=== PATIENT | male | born 1980 | race Caucasian/White ===

== ENCOUNTER 2016-12-23 18:42 | Inpatient (IN) ==
--- NOTE | 2016-12-23 19:17 | PROVIDER DOCUMENTATION ---
HPI-Chest Pain - General Chief Complaint: Chest Pain Stated Complaint: CP- LT ARM PAIN WHEN WALK A LONG WAY Time Seen by Provider: 12/23/16 19:05 Source: patient Allergies/Adverse Reactions: Patient Allergies Allergy/AdvReac Type Severity Reaction Status Date / Time erythromycin base Allergy RASH Verified 12/23/16 19:37 Home Medications: Home Medication List Medication Instructions Recorded Confirmed Last Taken Type Atorvastatin Calcium 1 tab PO DAILY 12/23/16 12/23/16 12/23/16 07:00 History Metoprolol [Lopressor] 1 tab PO DAILY 12/23/16 12/23/16 12/23/16 07:00 History Oxycodone HCl/Acetaminophen 1 tab PO TID 12/23/16 12/23/16 12/23/16 09:00 History [Oxycodon-Acetaminophen 7.5-325] Pregabalin [Lyrica] 1 cap PO BID 12/23/16 12/23/16 12/23/16 07:00 History Ranitidine HCl 1 tab PO DAILY 12/23/16 12/23/16 12/23/16 History Trazodone HCl 1 tab PO QHS 12/23/16 12/23/16 12/22/16 20:00 History - History of Present Illness-CP Nature of Presenting Problem: 36 yom with chest pain that has been off and on for a year. Pain started today after some mild activity, pain has not subsided at this time. Pain radiates to left arm. Has some SOB with pain, nausea without vomiting. Location: reports: substernal Chest Pain Radiation: reports: arms, shoulders Quality of Pain: reports: pressure Severity in ED: moderate Onset/Duration: 4-6 hours ago Timing: still present Context/Activities at Onset: reports: light activity Modifying Factors: improves with: nothing Associated Symptoms: reports: nausea, shortness of breath. denies: vomiting Similar Symptoms Previously?: Yes Recently Seen Here or By Another Healthcare Provider: No Review of Systems - Adult - REVIEW OF SYSTEMS - ADULT Constitutional: reports: see HPI Eyes: reports: no symptoms reported Ears, Nose, Mouth & Throat: reports: no symptoms reported Cardiovascular: reports: see HPI, chest pain Respiratory: reports: see HPI, dyspnea on exertion, shortness of breath Gastrointestinal: reports: no symptoms reported Genitourinary: reports: no symptoms reported Musculoskeletal: reports: no symptoms reported Integumentary: reports: no symptoms reported Neurological: reports: no symptoms reported All Other Systems: Reviewed and Negative Past History - Adult - PAST MEDICAL HISTORY-ADULT Review of Records: reports: Old Records Reviewed, Nursing Assessment Review, Medications Reviewed, Social history reviewed & non-contributory. Physical Exam-General - PHYSICAL EXAM-ADULT Initial Vital Signs Reviewed: Yes - CONSTITUTIONAL General Appearance: appears well, alert, no apparent distress - EYES Eyes: PERRL/EOMI, pink conjunctivae - HEAD, EARS, NOSE, MOUTH & THROAT HENMT: normocephalic/atraumatic, moist mucous membranes, normal ENT inspection - NECK Neck: non-tender, full range of motion, supple - RESPIRATORY Respiratory: chest non-tender, lungs clear, normal breath sounds, no pleuratic chest pain, no respiratory distress, no accessory muscle use - CARDIOVASCULAR Cardiovascular: normal peripheral pulses, no edema, no gallop, no JVD, no murmur - GASTROINTESTINAL (ABDOMEN) Abdominal Exam: normal bowel sounds, non tender, soft, no organomegaly, no pulsatile mass - LYMPHATIC Lymphatic: no adenopathy - MUSCULOSKELETAL Back Exam: normal inspection, no CVA tenderness, no vertebral tenderness Extremity: normal range of motion, non-tender, normal gait, normal inspection, no pedal edema, no calf tenderness, normal capillary refill, pelvis stable - SKIN Integumentary: normal color, normal turgor, warm/dry - NEUROLOGIC Neurologic: grossly normal - PSYCHIATRIC Psych/Mental Status: oriented x 3 Progress - PLAN OF CARE/RESULTS Progress/Plan/Lab Results: Vital Signs - 8 hr 12/23/16 18:47 12/23/16 19:45 Temperature 97.4 F L Pulse Rate 96 H 82 Respiratory Rate 20 18 Blood Pressure 122/72 119/73 O2 Sat by Pulse Oximetry 95 96 Laboratory Results - last 24 hr 12/23/16 12/23/16 12/23/16 19:23 19:23 19:23 WBC 10.53 RBC 4.49 L Hgb 13.2 L Hct 39.3 L MCV 87.5 MCH 29.4 MCHC 33.6 RDW Std Deviation 12.9 Plt Count 335 MPV 9.8 Immature Gran % (Auto) 0.3 Neut % (Auto) 48.1 Lymph % (Auto) 26.8 [place] % (Auto) 8.9 Eos % (Auto) 14.7 H Baso % (Auto) 1.2 H Immature Gran # (Auto) 0.03 Neut # (Auto) 5.06 Lymph # (Auto) 2.82 [place] # (Auto) 0.94 H Eos # (Auto) 1.55 H Baso # (Auto) 0.13 PT INR PTT (Actin FS) D-Dimer 0.10 Sodium 142 Potassium 4.0 Chloride 103 Carbon Dioxide 24 L Anion Gap 15 BUN 27 H Creatinine 1.3 H Estimated GFR/1.73 m2 > 60 BUN/Creatinine Ratio 21 Glucose 103 Calculated Osmolality 288 Calcium 9.1 Magnesium 2.4 Total Bilirubin 0.28 AST 26 ALT 35 Alkaline Phosphatase 58 Creatine Kinase 104 Troponin T [id number] Pept Total Protein 7.0 Albumin 4.4 Globulin 2.6 Albumin/Globulin Ratio 1.7 12/23/16 12/23/16 12/23/16 19:23 19:23 19:23 WBC RBC Hgb Hct MCV MCH MCHC RDW Std Deviation Plt Count MPV Immature Gran % (Auto) Neut % (Auto) Lymph % (Auto) [place] % (Auto) Eos % (Auto) Baso % (Auto) Immature Gran # (Auto) Neut # (Auto) Lymph # (Auto) [place] # (Auto) Eos # (Auto) Baso # (Auto) PT 10.1 INR 0.96 PTT (Actin FS) 26.4 D-Dimer Sodium Potassium Chloride Carbon Dioxide Anion Gap BUN Creatinine Estimated GFR/1.73 m2 BUN/Creatinine Ratio Glucose Calculated Osmolality Calcium Magnesium Total Bilirubin AST ALT Alkaline Phosphatase Creatine Kinase Troponin T < 0.010 [id number] Pept 510 H Total Protein Albumin Globulin Albumin/Globulin Ratio Orders Category Date Time Status Saline Loc NOW Care 12/23/16 19:11 Active CHEST-2 VIEWS [RAD] Stat Exams 12/23/16 18:51 Draft CBC WITH ELECTRONIC DIFF [HEME] Stat Lab 12/23/16 19:23 Completed CK PROFILE [SP CHEM] Stat Lab 12/23/16 19:23 Completed COMPREHENSIVE METABOLIC PANEL [CHEM] Stat Lab 12/23/16 19:23 Completed D-DIMER [CHEM] Stat Lab 12/23/16 19:23 Completed MAGNESIUM [CHEM] Stat Lab 12/23/16 19:23 Completed PRO B-NATRIURETIC PEPTIDE Stat Lab 12/23/16 19:23 Completed PROTIME WITH INR [COAG] Lab 12/24/16 02:00 Uncollected PROTIME WITH INR [COAG] Lab 12/24/16 08:00 Uncollected PROTIME WITH INR [COAG] Lab 12/24/16 14:00 Uncollected PROTIME WITH INR [COAG] Lab 12/24/16 20:00 Uncollected PROTIME WITH INR [COAG] Lab 12/25/16 02:00 Uncollected PROTIME WITH INR [COAG] Lab 12/25/16 08:00 Uncollected PROTIME WITH INR [COAG] Stat Lab 12/23/16 19:23 Completed PTT HEPARIN PROTOCOL [COAG] Lab 12/24/16 02:00 Uncollected PTT HEPARIN PROTOCOL [COAG] Lab 12/24/16 08:00 Uncollected PTT HEPARIN PROTOCOL [COAG] Lab 12/24/16 14:00 Uncollected PTT HEPARIN PROTOCOL [COAG] Lab 12/24/16 20:00 Uncollected PTT HEPARIN PROTOCOL [COAG] Lab 12/25/16 02:00 Uncollected PTT HEPARIN PROTOCOL [COAG] Lab 12/25/16 08:00 Uncollected PTT HEPARIN PROTOCOL [COAG] Lab 12/25/16 14:00 Uncollected PTT HEPARIN PROTOCOL [COAG] Lab 12/25/16 20:00 Uncollected PTT HEPARIN PROTOCOL [COAG] Lab 12/26/16 02:00 Uncollected PTT HEPARIN PROTOCOL [COAG] Lab 12/26/16 08:00 Uncollected PTT HEPARIN PROTOCOL [COAG] Stat Lab 12/23/16 20:55 Uncollected PTT [COAG] Stat Lab 12/23/16 19:23 Completed TROPONIN T Stat Lab 12/23/16 19:23 Completed Heparin Med 12/23/16 19:36 Discontinued 5,000 unit IV NOW ONE Heparin 25,000 Units/D5w Med 12/23/16 19:45 Active 25,000 unit in 250 ml IV 14.152 mls/hr Morphine Med 12/23/16 19:51 Discontinued 4 mg IV NOW ONE Ondansetron [Zofran] Med 12/23/16 19:51 Discontinued 4 mg IV NOW ONE EKG [EKG] Stat Ther 12/23/16 18:51 Ordered Result Diagrams: 12/23/16 19:23 12/23/16 19:23 - XRAY 1 XRAY: Bilateral XRAY Study: Chest Impression: Normal (Per radiologist.) - CONSULTS/PCP/HOSPITALIST Notification #1 *Consult/PCP/Hospitalist*: [place] Time Discussed: 21:48 Consult Disposition: Will see in ED, Admit Departure - Departure Time of Disposition Decision: 21:32 DIAGNOSIS: Unstable angina Disposition: ADMITTED INPATIENT 09 Certified Medical Emergency: Emergent Condition: Stable Referrals and Follow-Ups: Todd Keys [Primary Care Provider] - Attestation - Physician/ CHAD Attestation Patient care was provided by Advanced Practice Provider:: Yes Advanced Practice Provider:: Magdiel Adhikari Advanced Practice Provider documentation review:: The Mid-level provider documentation, treatment plan and medical decision making was reviewed by the physician who agrees with all treatment and medical decision making by the MLP.
[2016-12-23] MEDS ORDERED: HEPARIN IV ONE (19:36)
[2016-12-23 19:39] LABS: MANUAL DIFF NEEDED? NO
[2016-12-23] MEDS ORDERED: HEPARIN 25,000 UNITS/D5W 25,000 UNIT/250 ML IV.SOLN IV SCH (19:45)
[2016-12-23] MEDS ORDERED: MORPHINE IV ONE (19:51)
[2016-12-23] MEDS ORDERED: ZOFRAN IV ONE (19:51)
[2016-12-23 19:55] LABS: BASO% 1.2 % (0.0-0.8); EOS# 1.55 X1000 (0.0-0.7); EOS% 14.7 % (0.0-10.0); HEMATOCRIT 39.3 % (42.0-52.0); HEMOGLOBIN 13.2 g/dL (14.0-18.0); IMM GRAN# 0.03 X1000 (0.0-0.04); IMM GRAN% 0.3 % (0.0-0.5); LYMPH# 2.82 X1000 (1.2-3.4); LYMPH% 26.8 % (20.5-51.1); MCH 29.4 PG (27-31); MCHC 33.6 g/dL (33-37); MCV 87.5 FL (81-99); MONO# 0.94 X1000 (0.11-0.59); MONO% 8.9 % (1.7-9.3); MPV 9.8 FL (7.4-10.4); NEUT% 48.1 % (42.2-75.2); PLT 335 X1000 (130-400); RBC 4.49 XMIL (4.7-6.1)
[2016-12-23 20:04] LABS: INR 0.96; PROTIME 10.1 Seconds (9.2-11.7); PTT 26.4 Seconds (22.0-36.0)
[2016-12-23 20:20] LABS: AGAP 15; ALBUMIN 4.4 g/dL (3.5-5.0); ALKALINE PHOSPHATASE 58 U/L (32-122); BUN 27 mg/dL (8-22); CALCIUM 9.1 mg/dL (8.8-10.2); CHLORIDE 103 mmol/L (98-107); CK PROFILE 104 U/L (24-204); COSMO 288; GOT 26 U/L (10-34); GPT 35 U/L (10-44); MAGNESIUM 2.4 mg/dL (1.5-2.7); SODIUM 142 mmol/L (136-145); TCO2 24 mmol/L (25-35); TOTAL BILIRUBIN 0.28 mg/dL (0.20-1.00)
--- NOTE | 2016-12-23 20:44 | Diag Imaging Result Document ---
PROCEDURE NAME: CHEST-2 VIEWS - 12/23/2016 FRONTAL AND LATERAL CHEST, 2 VIEWS: FINDINGS: No comparison films. The lungs are well expanded. The heart is not enlarged. The vessels are not distended. No pneumonia. No pleural effusions. No free air beneath the diaphragm. IMPRESSION: No acute abnormality.
--- NOTE | 2016-12-23 22:38 | ED EKG INTERP ---
This chart was entered by Tom Hawkins Scribe, acting as scribe for Joesph Mehta MD. EKG Interpretation - EKG Time of EKG reading by physician:: 18:57 EKG Read and Signed by:: Joesph Mehta EKG Interpretation (*Must complete 3 of following elements*): Abnormal (ST & Marked T wave abnormality, consider anterolateral ischemia; Prolonged QT) Rate: 90 Rhythm: NSR This chart was documented by the indicated scribe, (Tom Hawkins Scribe) and accurately reflects the services I performed and decisions made by me, Joesph Mehta MD, as attested by the provider's signature.
[2016-12-23] MEDS ORDERED: ASPIRIN PO ONE (23:41)
[2016-12-24] MEDS ORDERED: ZOFRAN IV PRN (00:41)
[2016-12-24] MEDS ORDERED: TYLENOL PO PRN (00:41)
[2016-12-24] MEDS ORDERED: NS 1,000 ML IV ONE (00:41)
[2016-12-24] MEDS ORDERED: NITROGLYCERIN SL PRN (00:41)
--- NOTE | 2016-12-24 01:19 | HISTORY AND PHYSICAL ---
PRIMARY CARE PROVIDER: Dr. Todd Keys. CHIEF COMPLAINT: Chest pain. HISTORY OF PRESENT ILLNESS: Mr. Nunez is a 36-year-old, male who presented to the ER tony[facility] with complaints of left-sided chest pain that is intermittent, burning in nature, radiating to his left arm. The patient does report associated symptoms of shortness of breath, diaphoresis, and occasional episodes of lightheadedness. The patient states that his chest pain has been ongoing for over a year, since 2014. He states that initially he went in to have a lower back surgery in 2014. They did an EKG and saw some abnormalities and sent him to Dr. Jacome for further evaluation. At that time he did undergo a myocardial perfusion scan and stress test which did not show any significant findings. He was placed on metoprolol for which he reports was secondary to some episodes of elevated heart rate. He reports that at the time that he was evaluated by Dr. Jacome he was having the same chest pain he is having now although did not report this to the adult specialist. He states that over the past year especially in the last few weeks his chest pain has been getting more frequent as well as intensity of the pain has worsened. He states that now even with the slightest of exertion that his chest pain increases ans he has to stop and actually lie down for the pain to subside. For example, he reports that even walking from the house to the car he has to stop and lay the seat back in the car and rest. He also reports that just tonight in his room in the ER that they had him get out of bed and stand on the scale to weigh him and that this caused him to have chest pain as well. He denies any pain currently at rest. He has history of hypertension and hyperlipidemia and currently takes lisinopril, metoprolol and atorvastatin. The patient was previously a heavy smoker for approximately 10 years smoking 2 packs per day though has cut this down at this time to half a pack per day. He does not report any heavy alcohol use but states that he drinks anywhere from 2-3 beers a week and denies any illicit drug use. There is a family history of heart disease though this is only on his paternal side stating that his grandfather had a history of heart disease and did have to have bypass surgery though his mother, father and brother do not have any significant heart history. Upon evaluation in the ER, the patient was found to have EKG findings of ST depression in anterior lateral leads. EKG showed a normal sinus rhythm with ST and marked T-wave abnormality, consider anterior lateral ischemia as well as a prolonged QT, is at a rate of 90 with a QTc of 479. Vital signs are stable at this time with a heart rate of 78, respirations 20, blood pressure 111/88, and oxygen saturation of 97% nasal cannula at 2 L. Initial cardiac enzymes are negative at this time with a CK of 104 and troponin less than 0.01. Dr. Toure with Cardiology was contacted by ER provider and he is aware of the patient and did want the patient placed on a heparin drip at this time. At this time we will admit the patient for further treatment and evaluation of his chest pain. REVIEW OF SYSTEMS: A 12 point review of systems was conducted with the patient and all were negative except for pertinent positive mentioned in the above HPI. He denies any headache, dizziness, abdominal pain, nausea, vomiting, diarrhea. He denies any hematochezia or melena. He denies any dysuria or urinary frequency. He denies any fever, body aches or chills and also denied any pain, numbness or tingling in extremities. He does report some low back pain though this is chronic and has been ongoing for quite some time secondary to 4 previous low back surgeries. PAST MEDICAL HISTORY: 1. Hypertension. 2. Tachycardia. 3. Hyperlipidemia. 4. Chronic low back pain. PAST SURGICAL HISTORY: 1. Tonsillectomy. 2. Right hand surgery. 3. Four lower back surgeries. SOCIAL HISTORY: Patient is disabled at this time secondary to his lower back problems. He denies any illicit drug use though does report that he previously was a heavy smoker for approximately 10 years smoking 2 packs per day though at this time has cut this back to half a pack per day. He reports drinking approximately 2-3 beers a week. FAMILY HISTORY: Positive for his grandfather on his paternal side having a history of heart disease with bypass surgery. His father has a history of low back problems. He reports that his mother is healthy. He does have a brother who had a history of diabetes as well as cystic fibrosis though has secondary to complications from his cystic fibrosis. ALLERGIES: Patient reports allergy to erythromycin. HOME MEDICATIONS: 1. Atorvastatin 40 mg p.o. daily. 2. Metoprolol 50 mg p.o. daily. 3. Percocet 7.5 mg 1 p.o. 3 times a day. 4. Lyrica 200 mg b.i.d. 5. Zantac 300 mg p.o. daily. 6. Trazodone 50 mg p.o. daily. 7. Lisinopril once daily. The patient states that he thinks this dosage is 40 mg. We are waiting for the patient's father to bring his medication bottles to confirm these dosages as well. DIAGNOSTIC DATA/LABORATORY RESULTS: White blood cell count 10.5, hemoglobin 13.2, hematocrit 39.3, platelet count 335,000. PT 10.1, INR 0.96, PTT 26.4. D-dimer 0.10. Sodium 142, potassium 4.0, chloride 103, bicarb 24, BUN 27, creatinine 1.3 with a GFR greater than 60 , glucose 103, calcium 9.1, magnesium 2.4. Liver function tests are within normal limits. CK 104. Troponin less than 0.01. ProBNP was 510. Chest x-ray showed no acute abnormality per the radiologist. The EKG shows ST depression in anterior lateral leads. It showed a normal sinus rhythm with an ST and marked T-wave abnormality, consider anterior lateral ischemia and a prolonged QT at a rate of 90 with a QTc of 479. PHYSICAL EXAMINATION: VITAL SIGNS: Temperature 97.4 degrees, heart rate 78, respirations 20, blood pressure 111/88, oxygen saturation is 97%. GENERAL: Mr. Nunez is a pleasant 36-year-old male who is resting in the ER stretcher. He was in no acute distress. He was awake, alert and able to answer all questions appropriately. HEENT: Head is atraumatic, normocephalic. Pupils were equal, round, reactive to light at 3 mm bilaterally and brisk. Subconjunctivae were pink. Oral mucosa is moist. Oropharynx is clear. NECK: Supple. Trachea midline. No JVD noted. No carotid bruits noted upon auscultation bilaterally. CARDIOVASCULAR: Patient has normal S1, S2. No murmurs, gallops, or rubs appreciated with a regular rate and rhythm. PULMONARY: Patient has symmetrical chest expansion bilaterally. Lung sounds were clear to auscultation in bilateral full lopez. ABDOMEN: Soft. Does appear to be somewhat distended though the patient does have a protuberant abdomen noted. His abdomen was nontender upon palpation. Bowel sounds were present all 4 quadrants, were normoactive. EXTREMITIES: No cyanosis, clubbing, or edema noted. Pulse, motor and sensory were intact in all extremities as well. Pedal pulses as well as radial pulses were 3+ bilaterally. Capillary refill is less than 3. INTEGUMENTARY: The patient's skin is pink, warm, dry, and intact. No lesions or sores noted. NEUROLOGIC: Patient is alert and oriented to person, place, time, and situation. Cranial nerves 2-12 are grossly intact. ASSESSMENT AND PLAN: 1. Chest pain. For this, it does appear the patient is experiencing some unstable angina. We will place him on CIC for close cardiac monitoring. He has been given a 325 mg aspirin. We will continue this daily as well. We have increased his atorvastatin from 40 mg to 80 mg daily. He is currently on a heparin drip at this time per weight- based protocol. We will monitor his PTT and for any signs of bleeding as well. We will continue his metoprolol and lisinopril. We will continue with a series of cardiac enzymes with q.8 hour troponin and CK profile as well as a repeat EKG in the morning. We will give nitroglycerin sublingual for chest pain as well as morphine p.r.n. as needed. We have also placed orders for a lipid profile to be drawn in the morning and the patient will be placed NPO after midnight for this as well as for his cardiology consult. We have placed a consult with cardiology for Dr. Toure and we will await their evaluation and further recommendations and continue to follow his condition closely. 2. Hypertension. We will continue his blood pressure medications for this as mentioned above in #1 and continue to follow. 3. Hyperlipidemia. We will continue his atorvastatin but as previously mentioned we have increased the dose to 80 mg p.o. daily. 4. Chronic low back pain. We will continue the patient's Lyrica and he will receive morphine for pain as needed. 5. Tobacco abuse/dependency. We have discussed smoking cessation with the patient and we will continue to discuss this with him throughout his admission. The patient will be placed on CIC with telemetry. He will have vital signs q.4 hours. DVT prophylax this time is currently met given that the patient is on a heparin drip. GI prophylaxis will be provided with Protonix 40 mg IV q.24 hours. The patient did have an elevated creatinine though we do not have any recent labs to compare this to. His creatinine was 1.3 today and the most recent creatinine we have was in October of 2009 for which it was 1.0. We will give the patient normal saline at 100 mL/h x1 bag and we will repeat a chemistry in the morning and continue to follow this. We have also placed a order for a urinalysis as well as a urine drug screen and are awaiting those results. Further orders and recommendations pending hospital course, diagnostic studies, and physician evaluation. Dictated by EDGAR Gerard for Socrates Ayala MD I personally examined patient and discussed case with [employer]AME [employer]ER. cc: Socrates Ayala MD MTDD
[2016-12-24] MEDS: PROTONIX IV SCH ×2 (01:33→23:41)
[2016-12-24] MEDS: SODIUM CHLORIDE 0.9% INJ SCH (01:33)
[2016-12-24] MEDS: MORPHINE IV PRN ×3 (01:33→23:41)
[2016-12-24] MEDS ORDERED: PNEUMOVAX 23 IM ONE (02:21)
[2016-12-24] MEDS: NICODERM PATCH TD SCH ×2 (02:45→08:46)
[2016-12-24 02:56] LABS: PROTIME 10.5 Seconds (9.2-11.7)
[2016-12-24 02:59] LABS: PTT HEPARIN PROTOCOL 51.9 Seconds
[2016-12-24] MEDS ORDERED: HEPARIN 25,000 UNITS/D5W 25,000 UNIT/250 ML IV.SOLN IV SCH (03:55)
[2016-12-24] MEDS ORDERED: HEPARIN IV ONE (03:57)
[2016-12-24] MEDS ORDERED: HEPARIN ONE (04:00)
[2016-12-24 05:02] LABS: AGAP 14; BUN 26 mg/dL (8-22); CALCIUM 8.9 mg/dL (8.8-10.2); CHLORIDE 105 mmol/L (98-107); COSMO 287; MAGNESIUM 2.3 mg/dL (1.5-2.7); SODIUM 141 mmol/L (136-145); TCO2 22 mmol/L (25-35)
[2016-12-24 05:44] LABS: URINE CULTURE NEEDED? NO; URINE MICRO REVIEW NEEDED? NO; URINE SOURCE CLEAN CATCH
[2016-12-24 05:48] LABS: BILIRUBIN URINE NEGATIVE (NEGATIVE); BLOOD URINE NEGATIVE (NEGATIVE); COLOR YELLOW; GLUCOSE URINE NEGATIVE (NEGATIVE); LEUKOCYTES URINE NEGATIVE (NEGATIVE); NITRITE URINE NEGATIVE (NEGATIVE); PROTEIN URINE NEGATIVE (NEGATIVE); SP GRAVITY URINE 1.021; TURBIDITY URINE CLEAR (CLEAR); UROBILINOGEN URINE NORMAL (NORMAL)
[2016-12-24 05:49] LABS: UR EPITHELIAL CELLS <10 /HPF (<10); URINE BACTERIA NEGATIVE /HPF; URINE RBC <10 /HPF (<10); URINE WBC <10 /HPF (<10)
[2016-12-24 06:10] LABS: UR AMPHETAMINES QUAL NONE DETECTED (NONE DETECT); UR BARBITUATES QUAL NONE DETECTED (NONE DETECT); UR BENZODIAZEPIN QUAL NONE DETECTED (NONE DETECT); UR CANNABINOIDS QUAL NONE DETECTED (NONE DETECT); UR COCAINE QUAL NONE DETECTED (NONE DETECT); UR METHADONE QUAL NONE DETECTED (NONE DETECT); UR OPIATES QUAL PRESUMPTIVE POSITIVE (NONE DETECT); UR OXYCODONE QUAL NONE DETECTED (NONE DETECT); UR PCP QUAL NONE DETECTED (NONE DETECT)
--- NOTE | 2016-12-24 08:43 | PROGRESS NOTE ---
DATE: 12/24/2016 SUBJECTIVE DATA: Mr. Nunez is a 36-year-old, male with a history of chronic back pain, apparent apical hypertrophic cardiomyopathy, obesity, hypertension, and hyperlipidemia who was admitted last night with chest pain concerning for acute coronary syndrome. He reports severe chest burning in the left upper chest, radiating to the left arm whenever he does any type of exertion. Last night, he did not have any real acute complaints. This morning , he had some mild nausea but no overt chest pain at rest and no shortness of breath. His vitals were stable. He is currently resting in bed comfortably without distress noted. OBJECTIVE DATA: Vital Signs: Blood pressure is 126/67, heart rate is 81, respiratory rate is 18, O2 saturation is 98% on 2 L nasal cannula. Temperature is 97.7 degrees. Physical Examination: General: This is an obese, male, lying in the hospital bed in no acute distress. Neurologic: He is awake, alert, and oriented. He follows commands without focal deficits. HEENT: Head is atraumatic and normocephalic. Pupils are equal, round, and reactive to light. His oral mucosa is moist. Trachea is midline. Chest: Clear to auscultation. Diminished at the bases. CV: Regular rate and rhythm. S1-S2 is noted. There is a 1-2/6 systolic ejection murmur noted. GI: Soft, nondistended. Bowel sounds are positive. Extremities : Without edema, clubbing, or cyanosis. Pulses are palpable bilaterally. Diagnostic Data: INR is 1, PT 10.5, PTT is 51.9. Sodium 141, potassium 4, chloride 105, CO2 22, anion gap 14, BUN 26, creatinine 1.2, glucose is 124. Troponin is negative. UA is negative. Toxicology is positive for opiates. EKG continues to show normal sinus rhythm with diffuse ST and T abnormalities in the anterolateral leads. Intake and output show positive 135. ASSESSMENT AND PLAN: 1. Chest pain: Symptoms are concerning for acute coronary syndrome. Patient is on heparin protocol. He is on aspirin, high-dose statin, and nitrates. His enzymes thus far are negative. Cardiology has been consulted. In light of his history of apical hypertrophic cardiomyopathy, an echocardiogram has been ordered. We will continue to monitor telemetry and await recommendations from cardiology. 2. Acute kidney injury: Improved with intravenous hydration. We will continue to monitor. 3. Chronic pain: We will continue his Percocet with morphine for breakthrough pain. 4. Hypertension and hyperlipidemia: Currently controlled with medications. A lipid panel has been ordered for the morning. 5. Nicotine dependence: Patient has been highly advised to quit smoking. Nicotine patch has been prescribed to him. We will continue cessation education. 6. Of note, the patient reports that his grandfather was 1 of 9 children and all 9 apparently from heart disease. Earliest ages were in the 30s to 40s. There is a significant cardiac history on both sides of his family. 7. Deep venous thrombosis prophylaxis provided with heparin drip. Further recommendations to follow. Dictated by EDGAR Fairbanks for Moody Carvalho MD cc: EDGAR Fairbanks Addendum: I personally evaluated and examined the patient in conjunction to the [employer] and agreed with his assessment and disposition. No recurrent pain. Echo is consistent with cardiomyopathy. Discussed with Dr. Matute who plans to stress him. UMA
[2016-12-24] MEDS: PERCOCET-5 PO SCH ×3 (08:45→20:47)
[2016-12-24] MEDS: LOPRESSOR PO SCH (08:46)
[2016-12-24] MEDS: PRINIVIL PO SCH (08:46)
[2016-12-24] MEDS ORDERED: PREGABALIN PO SCH (09:00)
[2016-12-24] MEDS ORDERED: LYRICA PO SCH (09:00)
[2016-12-24] MEDS: LYRICA PO SCH ×2 (09:01→20:47)
[2016-12-24 10:34] LABS: MANUAL DIFF NEEDED? NO
[2016-12-24 10:37] LABS: BASO% 0.6 % (0.0-0.8); EOS# 1.57 X1000 (0.0-0.7); EOS% 13.7 % (0.0-10.0); HEMATOCRIT 39.4 % (42.0-52.0); HEMOGLOBIN 13.4 g/dL (14.0-18.0); IMM GRAN# 0.03 X1000 (0.0-0.04); IMM GRAN% 0.3 % (0.0-0.5); LYMPH# 3.23 X1000 (1.2-3.4); LYMPH% 28.3 % (20.5-51.1); MCH 30.2 PG (27-31); MCV 88.7 FL (81-99); MONO# 0.89 X1000 (0.11-0.59); MONO% 7.8 % (1.7-9.3); MPV 9.8 FL (7.4-10.4); NEUT% 49.3 % (42.2-75.2); PLT 307 X1000 (130-400); RBC 4.44 XMIL (4.7-6.1)
--- NOTE | 2016-12-24 20:22 | CONSULTATION ---
DATE OF CONSULTATION: 12/24/2106 IMPRESSIONS: 1. Episodic chest discomfort with mixed features but predominantly atypical for myocardial ischemia. Serial troponins normal. 2. Hypertrophic cardiomyopathy without obstruction. 3. Hypertension. 4. Chronic cigarette use. 5. Hypercholesterolemia. 6. Chronic back disorder. 7. Obesity. 8. Very likely obstructive sleep apnea. RECOMMENDATIONS: Further evaluation strategies discussed with patient including possible pharmacologic myocardial perfusion study versus coronary angiography. He prefers to pursue noninvasive evaluation with pharmacologic myocardial perfusion study and Lexiscan sestamibi study will be arranged. HISTORY: This 36-year-old white male with a past history of hypertrophic cardiomyopathy, hypertension, hypercholesterolemia, and smoking was admitted to the emergency room last night for evaluation of chest pain and abnormal EKG. He had an evaluation year and a half ago for abnormal preoperative ECG which demonstrated diffuse T-wave inversions. He was found to have hypertrophic cardiomyopathy. Noninvasive screen for coronary artery disease was negative. He relates recent difficulty with episode of burning left upper lateral chest discomfort which extends to the left shoulder and left upper extremity. Discomfort seems to be aggravated mostly by movement but can also occur when he walks longer distances or walks uphill. He has noted some tendency for discomfort to seem better after takes his metoprolol. He does have a history of snoring and he has an uncle who is a physician who observed him sleep and suspected obstructive sleep apnea. PAST MEDICAL HISTORY: 1. Hypertrophic cardiomyopathy. 2. Obesity. 3. Hypertension. 4. Hypercholesterolemia. 5. Chronic back disorder with 4 previous back surgeries. MEDICATIONS: Prior to admission as listed. SOCIAL HISTORY: He is disabled due to his back disorder. He smokes half-pack of cigarettes per day. He does not use alcohol. FAMILY HISTORY: Negative for premature coronary artery disease. He has had several uncles who early in life but details are not available. REVIEW OF SYSTEMS: Pulmonary: Negative. Gastrointestinal: Negative. Constitutional: Negative. Remainder of review of systems is negative with 14 total systems reviewed. PHYSICAL EXAMINATION: General: This is an obese, adult male, in no distress. Vital Signs: As recorded are stable. HEENT: Extraocular movements appear intact. Mucous membranes are moist. Neck: Supple. No jugular venous distention. There are no carotid bruits. Chest: Clear to auscultation. Cardiac Exam: Regular rate and rhythm without appreciable murmur or gallop. Abdomen: Soft, nontender. Bowel sounds are normal. Extremities: Without edema. Neurologic Exam: Reveals him to be alert and fully oriented. Speech is fluent. Moves all 4 extremities equally well. DIAGNOSTIC STUDIES: ECG demonstrates sinus rhythm and diffuse marked T-wave inversions. Serial troponins are normal. cc: Oscar Toure MD
[2016-12-24] MEDS: DESYREL PO SCH (20:47)
[2016-12-24] MEDS: LIPITOR PO SCH (20:47)
[2016-12-24] MEDS: ASPIRIN PO SCH (20:47)
--- NOTE | 2016-12-25 02:14 | ECHO REPORT ---
ORDER DATE: 12/24/2016 MEASUREMENTS: Left ventricular end-diastolic diameter 4.3 and systolic diameter 2.7. Septal thickness 1.3, posterior wall thickness 1.3, left atrium 5.9, aortic root 3.2 SUMMARY: 1. Fair quality study. The apical window is somewhat limited. 2. Aortic, mitral, tricuspid, and pulmonic valves are without obstruction abnormality, with mild- to-moderate mitral regurgitation, mild tricuspid regurgitation, and trace pulmonic regurgitation. The aortic valve is trileaflet and opens normally, with peak gradient less than 10 mmHg. The aortic root is normal in size. The estimated systolic PA pressure by Doppler is approximately 30-35 mmHg. Aortic root is normal in size. 3. Normal left ventricular chamber size, with mild left hypertrophy demonstrated. The more apical portion of the left ventricle is not as well defined, but appears to be possibly more hypertrophied. Estimated left ventricular ejection fraction is 70%. No regional wall motion abnormalities are evident. Left atrium is moderately enlarged. Right atrium and right ventricle are normal in size, with preserved right ventricular systolic function. 4. No pericardial effusion. 5. Appearance of inferior vena cava suggests normal central venous pressure. CONCLUSIONS: 1. [id number] mitral regurgitation. 2. Mild tricuspid regurgitation, with an estimated systolic PA pressure of 30-35 mmHg. 3. Mild concentric left hypertrophy, with perhaps more degree of hypertrophy involving the apical portion of the left ventricle. 4. Estimated left ventricular ejection fraction 70%. 5. Moderate left atrial enlargement. cc: MD Len Albrecht CRNP
[2016-12-25] MEDS: MORPHINE IV PRN ×4 (03:42→23:50)
--- NOTE | 2016-12-25 05:28 | EKG Report ---
Test Performed on : 12/24/2016 02:21:30 AM Test Reason : Chest Pain Blood Pressure : / mmHG Vent. Rate : 073 BPM Atrial Rate : 073 BPM P-R Int : 144 ms QRS Dur : 094 ms QT Int : 420 ms P-R-T Axes : 048 028 215 degrees QTc Int : 462 ms Normal sinus rhythm. ST \T\ Marked T wave abnormality, consider inferior ischemia ST \T\ Marked T wave abnormality, consider anterolateral ischemia Prolonged QT Abnormal ECG When compared with ECG of 23-DEC-2016 18:57, (Unconfirmed) T wave inversion more evident in Inferior leads Consider recent inferior-lateral non-IVON PR Confirmed by Velvet MYERS, Luis Conde ([id number]) on 12/25/2016 6:42:58 PM
--- NOTE | 2016-12-25 05:49 | EKG Report ---
Test Performed on : 12/24/2016 12:10:54 PM Test Reason : Chest Pain Blood Pressure : / mmHG Vent. Rate : 068 BPM Atrial Rate : 068 BPM P-R Int : 152 ms QRS Dur : 092 ms QT Int : 432 ms P-R-T Axes : 047 023 213 degrees QTc Int : 459 ms Normal sinus rhythm. ST \T\ Marked T wave abnormality, consider inferior ischemia ST \T\ Marked T wave abnormality, consider anterolateral ischemia Abnormal ECG When compared with ECG of 24-DEC-2016 02:21, (Unconfirmed) No significant change was found Confirmed by Velvet MYERS, Luis Conde ([id number]) on 12/25/2016 6:47:53 PM
--- NOTE | 2016-12-25 06:21 | EKG Report ---
Test Performed on : 12/23/2016 6:57:22 PM Test Reason : Chest Pain Blood Pressure : / mmHG Vent. Rate : 090 BPM Atrial Rate : 090 BPM P-R Int : 152 ms QRS Dur : 084 ms QT Int : 392 ms P-R-T Axes : 061 031 175 degrees QTc Int : 479 ms Normal sinus rhythm. ST \T\ Marked T wave abnormality, consider anterolateral ischemia Prolonged QT Abnormal ECG No previous ECGs available Unconfirmed Result
[2016-12-25 08:00] LABS: AGAP 14; BUN 20 mg/dL (8-22); CALCIUM 8.5 mg/dL (8.8-10.2); CHLORIDE 99 mmol/L (98-107); COSMO 277; POTASSIUM 4.2 mmol/L (3.5-5.1); SODIUM 137 mmol/L (136-145); TCO2 24 mmol/L (25-35)
[2016-12-25 08:21] LABS: HEMATOCRIT 37.9 % (42.0-52.0); HEMOGLOBIN 12.7 g/dL (14.0-18.0); MCH 29.9 PG (27-31); MCHC 33.5 g/dL (33-37); MCV 89.2 FL (81-99); MPV 9.8 FL (7.4-10.4); RBC 4.25 XMIL (4.7-6.1)
[2016-12-25] MEDS: PERCOCET-5 PO SCH ×3 (08:22→20:30)
[2016-12-25] MEDS: LOVENOX SUBQ SCH (08:23)
[2016-12-25] MEDS: PRINIVIL PO SCH (08:23)
[2016-12-25] MEDS: LIPITOR PO SCH (08:23)
[2016-12-25] MEDS: LYRICA PO SCH ×2 (08:23→20:31)
[2016-12-25] MEDS: LOPRESSOR PO SCH (08:23)
[2016-12-25] MEDS: NICODERM PATCH TD SCH (08:24)
--- NOTE | 2016-12-25 14:22 | PROGRESS NOTE ---
DATE: 12/25/2016 SUBJECTIVE: This patient states that he is feeling much better, he was able to walk and he did not feel any kind of chest discomfort/pain, just some burning sensation. He is not complaining of shortness of breath. No nausea, no vomiting, no diarrhea, no constipation. OBJECTIVE: Vital Signs: Temperature 98.8 degrees, pulse 12.7. LABORATORY: WBC 9.8, hemoglobin 12.7, hematocrit 37.9, platelets 271,000. Sodium 137, potassium 4.2, chloride 99, bicarbonate 24, BUN 20, creatinine 1, glucose 111, calcium 8.5. ASSESSMENT AND PLAN: 1. Chest pain. Cardiology department evaluated this patient. They discussed the possibility of left heart catheterization versus nuclear medicine stress test, they will ask for an stress test for this patient. We will follow their recommendations. This patient is not having chest pain at this moment. 2. Acute kidney injury. Resolved. 3. Chronic pain. This patient is at home on Percocet and we have been using morphine for breakthrough pain. 4. Hypertension controlled. Continue with the same management. 5. Nicotine dependence. This patient has been highly advised to quit smoking. Continue with nicotine patch and daily cessation education. 6. Deep vein thrombosis prophylaxis. Continue with Lovenox. cc: Silver Block MD
[2016-12-25] MEDS: DESYREL PO SCH (20:31)
[2016-12-25] MEDS: ASPIRIN PO SCH (20:32)
[2016-12-25] MEDS: SODIUM CHLORIDE 0.9% INJ SCH (23:50)
[2016-12-25] MEDS: PROTONIX IV SCH (23:50)
--- NOTE | 2016-12-26 04:14 | PROGRESS NOTE ---
DATE: 12/25/2016 SUBJECTIVE: The patient continues without chest discomfort or dyspnea. Resting sestamibi was performed today. OBJECTIVE: Vital Signs: Blood pressure 127/62, heart rate 97 and regular. Neck: There is no significant jugular venous distention. Chest: Clear to auscultation. Cardiac Examination: A regular rate and rhythm without appreciable murmur or gallop. There is no evidence of peripheral edema. LABORATORY DATA: Includes initial troponin less than 0.01. Followup troponin less than 0.01. Echocardiography demonstrates mild to moderate mitral regurgitation, mild tricuspid regurgitation, mild concentric left hypertrophy with the apical portion of the left ventricle appearing more hypertrophied and left ventricular ejection fraction of 70%. IMPRESSION: 1. Recent chest pain with mixed features predominantly typical for myocardial ischemia. Serial troponin's normal. 2. Hypertrophic cardiomyopathy without obstruction. 3. Hypertension. 4. Chronic cigarette use. 5. Hypercholesterolemia. 6. Mild to moderate mitral regurgitation. 7. Very likely obstructive sleep apnea. RECOMMENDATIONS: [facility] sestamibi study scheduled for a.m. cc: Oscar Toure MD
[2016-12-26 07:54] LABS: HEMATOCRIT 39.1 % (42.0-52.0); HEMOGLOBIN 13.3 g/dL (14.0-18.0); MCH 29.8 PG (27-31); MCV 87.5 FL (81-99); MPV 9.7 FL (7.4-10.4); RBC 4.47 XMIL (4.7-6.1)
[2016-12-26] MEDS ORDERED: LEXISCAN ONE (08:01)
[2016-12-26 08:11] LABS: AGAP 15; BUN 19 mg/dL (8-22); CALCIUM 8.9 mg/dL (8.8-10.2); CHLORIDE 101 mmol/L (98-107); COSMO 279; POTASSIUM 4.3 mmol/L (3.5-5.1); SODIUM 139 mmol/L (136-145); TCO2 23 mmol/L (25-35)
[2016-12-26] MEDS: LIPITOR PO SCH (09:39)
[2016-12-26] MEDS: LYRICA PO SCH ×2 (09:40→21:03)
[2016-12-26] MEDS: NICODERM PATCH TD SCH (09:40)
[2016-12-26] MEDS: LOVENOX SUBQ SCH (09:40)
[2016-12-26] MEDS: LOPRESSOR PO SCH (09:40)
[2016-12-26] MEDS: PRINIVIL PO SCH (09:40)
[2016-12-26] MEDS: PERCOCET-5 PO SCH ×3 (09:40→21:03)
[2016-12-26] MEDS: MORPHINE IV PRN ×3 (10:19→22:00)
--- NOTE | 2016-12-26 15:58 | PROGRESS NOTE ---
DATE: 12/26/2016 SUBJECTIVE: This patient had a stress test done today. This patient is feeling much better. He is not complaining of chest pain/discomfort. He denies nausea, vomiting, diarrhea, constipation. Family members at the bedside. OBJECTIVE: Vital Signs: Temperature 98.4 degrees, pulse 100, respiratory rate 21, blood pressure 146/75, oxygen saturation 95% on room air. HEENT: Head normocephalic. No trauma. PERRLA. Neck: Supple. No JVD. No masses. Central trachea. Cardiovascular: RRR. No murmur. Abdomen: Soft, nontender, nondistended. No hepatosplenomegaly. Chest: Clear to auscultation. No wheezing. No rales. Extremities: No edema. No clubbing. No cyanosis. Neurological: The patient is alert and oriented x3. No focal neurological deficits. LABORATORY: WBC 10.1, hemoglobin 13.3, hematocrit 39.1, platelets 273,000. Sodium 139, potassium 4.3, chloride 101, bicarbonate 23, BUN 19, creatinine 1.0, glucose 88, calcium 8.9. ASSESSMENT AND PLAN: 1. Chest pain. Cardiology department is following this patient. He had a stress test done today, pending results. We will follow the recommendations of cardiology department. Patient is not having chest pain at this moment. 2. Acute kidney injury, resolved. 3. Chronic pain. Continue with the same management. 4. Hypertension, controlled. Continue with the same management. 5. Nicotine dependence. This patient has been highly advised to quit smoking. Continue with nicotine patch daily and cessation education. 6. Deep vein thrombosis prophylaxis. Continue with Lovenox. cc: Silver Block MD
--- NOTE | 2016-12-26 16:36 | PROGRESS NOTE ---
DATE: 12/26/2016 SUBJECTIVE: Patient denies any chest discomfort or dyspnea. OBJECTIVE: Blood pressure 146/75 with heart rate 110. There is no significant JV distention.Chest: Clear to auscultation. Cardiac Exam: Was a regular rate and rhythm without appreciable murmur or gallop. There is no evidence of peripheral edema. Lexiscan sestamibi study demonstrates reversible defect in the apex, left ventricle and normal left ejection fraction. Inducible myocardial ischemia suggested. IMPRESSION: 1. Recurrent chest discomfort (burning) with mixed features. 2. Abnormal ECG probably related to hypertrophic cardiomyopathy. 3. Abnormal stress myocardial perfusion study showing evidence of inducible ischemia in the apex. 4. Hypertrophic cardiomyopathy. RECOMMENDATIONS: Favor pursuit of left heart catheterization with selective coronary angiography. The rationale for this approach was discussed with the patient along with potential hazards. He wished to proceed. cc: Oscar Toure MD
--- NOTE | 2016-12-26 17:35 | Diag Imaging Result Document ---
PROCEDURE NAME: MYOCARDIAL PERF SCAN, STR/REST - 12/26/2016 LEXISCAN SESTAMIBI INTERPRETATION: DATE OF STUDY: 12/25/2016 and 12/26/2016. SUMMARY: The patient underwent resting sestamibi study on 12/25/2016, was administered 41.5 millicuries of technetium-99m level sestamibi after which resting cardiac images were obtained. The patient underwent Lexiscan sestamibi study on 12/26/2016. Following the administration of Lexiscan, the heart rate increased from 83 beats per minute to 115 beats per minute while the blood pressure went from 118/78 to 128/84. With Lexiscan, the patient denied chest discomfort. Following the administration of Lexiscan, the patient was administered 41.8 millicuries of technetium-99m sestamibi after which gated stress cardiac images were obtained. Baseline ECG demonstrated sinus rhythm and diffuse prominent T-wave inversion. Following the administration of Lexiscan, the baseline ST-T abnormality did not change significantly. SPECT images were reconstructed in the short, horizontal, and vertical long axis. Review of these images demonstrated a medium size defect in the apex left ventricle on stress images which improves on resting images. Gated images demonstrate a calculated left ejection fraction 69% with symmetrical wall motion/thickening. CONCLUSIONS: 1. Adequate response to Lexiscan. 2. Clinically negative for chest pain. 3. Electrocardiographically baseline ST and T-wave abnormality did not change significantly with Lexiscan. 4. Lexiscan sestamibi images demonstrate reversible apical defect as described suggesting inducible myocardial ischemia in apex left ventricle. Normal left ventricular systolic function demonstrated. cc: MD Silver Albrecht MD
[2016-12-26] MEDS: DESYREL PO SCH (21:03)
[2016-12-26] MEDS: ASPIRIN PO SCH (21:03)
[2016-12-27] MEDS: PROTONIX IV SCH (00:48)
[2016-12-27] MEDS: SODIUM CHLORIDE 0.9% INJ SCH (00:48)
[2016-12-27] MEDS: MORPHINE IV PRN (05:42)
[2016-12-27 06:43] LABS: HEMATOCRIT 39.1 % (42.0-52.0); HEMOGLOBIN 13.1 g/dL (14.0-18.0); MCH 29.7 PG (27-31); MCHC 33.5 g/dL (33-37); MCV 88.7 FL (81-99); MPV 9.5 FL (7.4-10.4); RBC 4.41 XMIL (4.7-6.1)
[2016-12-27 07:03] LABS: AGAP 15; BUN 21 mg/dL (8-22); CALCIUM 9.1 mg/dL (8.8-10.2); CHLORIDE 100 mmol/L (98-107); COSMO 282; POTASSIUM 4.1 mmol/L (3.5-5.1); SODIUM 140 mmol/L (136-145); TCO2 25 mmol/L (25-35)
--- NOTE | 2016-12-27 07:32 | EKG Report ---
Test Performed on : 12/27/2016 06:43:21 AM Test Reason : prior to heart cath Blood Pressure : / mmHG Vent. Rate : 082 BPM Atrial Rate : 082 BPM P-R Int : 148 ms QRS Dur : 090 ms QT Int : 388 ms P-R-T Axes : 068 033 194 degrees QTc Int : 453 ms Normal sinus rhythm. ST \T\ Marked T wave abnormality, consider anterolateral ischemia Abnormal ECG When compared with ECG of 24-DEC-2016 12:10, No significant change was found Confirmed by Velvet MYERS, Luis Conde ([id number]) on 12/27/2016 6:38:44 PM
[2016-12-27 07:49] LABS: PROTIME 10.5 Seconds (9.2-11.7); PTT 27.5 Seconds (22.0-36.0)
[2016-12-27] MEDS: LOPRESSOR PO SCH (08:08)
[2016-12-27] MEDS: LYRICA PO SCH (08:08)
[2016-12-27] MEDS: PERCOCET-5 PO SCH ×2 (08:09→14:08)
[2016-12-27] MEDS: NICODERM PATCH TD SCH (08:09)
[2016-12-27] MEDS: PRINIVIL PO SCH (08:09)
[2016-12-27] MEDS: LIPITOR PO SCH (08:10)
[2016-12-27] MEDS: LOVENOX SUBQ SCH (08:11)
[2016-12-27] MEDS ORDERED: HEPARIN 1000 UNITS/NS 2,000 UNIT/1,000 ML IV.SOLN ONE (09:11)
[2016-12-27] MEDS ORDERED: VERSED ONE (10:56)
[2016-12-27] MEDS ORDERED: CLAVE PUMP SET NO FILTER 12260 ONE (10:57)
[2016-12-27] MEDS ORDERED: DILAUDID ONE (10:57)
[2016-12-27] MEDS ORDERED: CLAVE TWINSITE 32 IN 11959 ONE (10:57)
[2016-12-27] MEDS ORDERED: NS 1,000 ML ONE (10:57)
--- NOTE | 2016-12-27 11:50 | PROGRESS NOTE ---
DATE: 12/27/2016 SUBJECTIVE: This patient states that he is feeling better. He is not complaining of chest pain today. He is going to get a left heart catheterization today because his stress test showed a reversible apical defect suggesting inducible myocardial ischemia in the apex of the left ventricle. OBJECTIVE: Vital Signs: Temperature 97.9 degrees, pulse 81, respiratory rate 21, blood pressure 134/71, oxygen saturation 95% on room air. HEENT: Head normocephalic. No trauma. PERRLA. Neck: Supple. No JVD. No masses. Central trachea. Chest: Clear to auscultation. No wheezing. No rales. Cardiovascular: RRR. No murmurs. Abdomen: Soft, nontender, nondistended. No hepatosplenomegaly. Obese. Extremities: No edema. No clubbing. No cyanosis. Neurological: The patient is alert and oriented x3. No focal neurological deficits. LABORATORY: WBC 10.4, hemoglobin 13.1, hematocrit 39.1, platelets 283,000. Sodium 140, potassium 4.1, chloride 100, bicarbonate 25, BUN 21, creatinine 1, glucose 98, calcium 9.1, magnesium 2.2. ASSESSMENT AND PLAN: 1. Chest pain. This patient had a stress test done that showed some abnormalities. He will have a left heart catheterization today. We will continue following the recommendations of the cardiology department. 2. Acute kidney injury, resolved. 3. Chronic pain. Continue with the same management. 4. Hypertension, controlled. Continue with the same treatment. 5. Nicotine dependence. This patient has been highly advised to quit smoking. Continue with nicotine patch daily and cessation education. 6. Possible sleep apnea. I recommended to do a sleep study as an outpatient. Once this patient is discharged we will give him a referral for this. 7. Deep vein thrombosis prophylaxis. Continue with Lovenox. cc: Silver Block MD
--- NOTE | 2016-12-27 12:08 | CARDIAC CATH REPORT ---
PROCEDURE NAME: - INDICATIONS FOR THE PROCEDURE: Chest pain. History of hypertrophic cardiomyopathy. PROCEDURES PERFORMED: 1. Left heart catheterization. 2. Selective coronary angiography. 3. Left ventriculogram. PROCEDURE IN DETAIL: Mr. Nunez was brought to the catheterization laboratory in fasting state. Informed consent was obtained. Prepped in usual fashion. He was anesthetized over the right radial artery. A 5-Bhutanese sheath was placed via true Seldinger technique. Radial cocktail was administered. Catheters were introduced. Hemodynamic measurements made in the ascending thoracic aorta. Coronary angiography was performed in multiple views using JL 3.5 and JR 4 diagnostic catheters. A left heart catheterization and left ventriculogram were performed using the JR 4. At the conclusion of the procedure, all sheaths and catheters were removed. TR band was left inflated at 80 mL of air, 80 mL of IV contrast. No apparent complications. Good capillary refill. Good hemostasis. FINDINGS: 1. Left main appears relatively normal. 2. Left anterior descending and left circumflex vessels originate from the left main. There are minimal luminal irregularities noted scattered throughout these vessels. 3. Right coronary originates from the right coronary cusp. It is large dominant vessel with mild diffuse luminal irregularities. 4. Aortic blood pressure is 92/62 with a mean of 72. Left ventricle pressure is 93/21 with an LVEDP of 28. 5. Left ventriculogram was a difficult study with poor opacification of the ventricle overall. The ejection fraction appeared to be normal, but unfortunately segmental wall motion abnormalities were not able to be assessed with this study. ASSESSMENT: Mr. Nunez is a 36-year-old male with a history of hypertrophic cardiomyopathy presenting with chest pain. PLAN: He has no flow-limiting coronary lesions. He appears to have a normal ejection fraction. His EDP does appear to be significantly elevated, which could be the source of some of his symptomatology. I will defer further management of this patient to Dr. Toure, who is his primary consumer analyst in the hospital. cc: Jarred Chauhan MD
[2016-12-27 16:09] VITALS: BP 108/67
--- NOTE | 2016-12-27 18:16 | PROGRESS NOTE ---
DATE: 12/27/2016 SUBJECTIVE: Patient continues without chest discomfort or dyspnea. OBJECTIVE: Vital signs: Blood pressure 108/67, heart rate 76 and regular. Chest: Clear to auscultation. Cardiac: Reveals a regular rate and rhythm without appreciable murmur or gallop. There is no evidence of peripheral edema. Right radial artery access site for cardiac catheterization appears to be stable with no evidence of bleeding or hematoma. Cardiac catheterization study reports no significant coronary obstructive lesions and normal left ventricular ejection fraction. IMPRESSION: 1. Chest pain, probably noncardiac. 2. Hypertrophic cardiomyopathy. 3. Hypertension. 4. Chronic cigarette use. RECOMMENDATIONS: 1. Continue current cardiovascular regimen unchanged with exception of increase in metoprolol succinate to 75 mg daily. 2. Smoking cessation strongly advised. 3. Continue statin. 4. Reasonable for patient to be discharged this p.m. Please have patient follow up with me in approximately 1 month. cc: Oscar Toure MD
[2016-12-28] MEDS ORDERED: TOPROL XL PO SCH (09:00)
--- NOTE | 2016-12-29 07:06 | DISCHARGE SUMMARY ---
ADMISSION DATE: 12/23/2016 DISCHARGE DATE: 12/27/2016 CONSULTATIONS: Dr. Oscar Toure with cardiology. PERTINENT PROCEDURES: 1. Echocardiogram showed [id number] mitral regurgitation, mild tricuspid regurgitation, mild hypertrophy with perhaps some more degree of hypertrophy involving the apical portion of the left ventricle, EF 70%. the scan. 2. Lexiscan demonstrated a reversible apical defect suggesting inducible myocardial ischemia in the apex of the left ventricle; overall LV systolic function. 3. Left heart catheterization showed no flow-limiting coronary lesions. Normal EF. His EDP does appear to be significantly elevated which could be the source of some of his symptomatology. DISCHARGE DIAGNOSES: 1. Chest pain with negative cardiac enzymes. Lexiscan demonstrated reversible apical defect suggesting inducible myocardial ischemia, followed up with a left heart catheterization. This showed no flow-limiting coronary lesions. Normal EF. His EDP does appear to be significantly elevated which could be the source of his symptomatology. Followed by cardiology who continued his current CV regimen with the exception of an increase in his metoprolol to 75 mg daily. Smoking cessation was discussed daily, and to continue on lovastatin. 2. Hypertrophic cardiomyopathy. Aware. 3. Hypertension. Continue home medications. 4. Tobacco abuse. The patient was educated and discussed daily about smoking cessation as well as a means to quit. 5. Possible sleep apnea. The patient has been referred to outpatient sleep study. 6. Acute kidney injury resolved. 7. Chronic pain. Continue current management. HOSPITAL COURSE: Mr. Nunez is a 36-year-old male who presented to the ED with left- sided chest pain that was intermittent and burning in nature radiating to the left arm. He has associated symptoms of shortness of breath, diaphoresis and occasional episodes of lightheadedness. This chest pain has been ongoing for over a year since 2014. He said he initially went to have a lower back surgery in 2014. They did an EKG and saw some abnormalities and sent him to Dr. Jacome. At that time he underwent a perfusion scan that did not show any significant findings. He was placed on metoprolol secondary to episodes of elevated heart rate. Upon evaluation in the ED, the patient was found to have findings of ST depression anterolaterally. The EKG showed normal sinus rhythm with sinus tach to marked ST wave abnormality, as well as a prolonged QT and a QTc of 479. Vital signs were stable. All cardiac enzymes were negative. Cardiology was consulted. The patient was placed in [facility] with close monitoring. He underwent an echocardiogram as well as a Lexiscan stress test that demonstrated reversible apical defect suggesting inducible myocardial ischemia in the left apex ventricle, followed up with a left heart catheterization that showed no flow-limiting coronary lesion. He appeared to have a normal EF. His end-diastolic pressure did appear to be significantly elevated which could be the source of some of his symptoms. Dr. Toure kept the patient on his current medication regimen which is an increase of his metoprolol to 75 mg daily. Patient was discharged home on 12/27/2016 with self care to follow up with Dr. Toure, as well as his primary care physician, Todd Keys. DISCHARGE DIET: Healthy heart. DISCHARGE MEDICATIONS: 1. Atorvastatin 40 mg p.o. daily. 2. Lisinopril 20 mg p.o. daily. 3. Toprol-XL 75 mg p.o. daily. 4. Oxycodone 7.5/325 one each p.o. t.i.d. 5. Lyrica 200 mg p.o. b.i.d. 6. Zantac 300 mg p.o. daily. 7. Trazodone 50 mg p.o. at bedtime. FOLLOW-UP: Patient is being discharged home. He will need to follow up with his primary care physician, Dr. Todd Keys, as well as his block handler. Patient can return to the ED for any worsening of symptoms. DISCHARGE TIME: Greater than 30 minutes. Dictated by EDGAR Varma for Silver Block MD cc: Silver Block MD MTDD
== END 2016-12-27 19:08 | disposition home or self-care (01) ==
LOC: ED 18:42 → SUATTDRO 23:49 → 3S 23:49 → 3N 12-24 19:34 → 3S 12-27 11:46
PROVIDERS: ATTEND Internal Medicine